=== PATIENT | female | born 1970 | race Caucasian/White ===

== ENCOUNTER 2017-01-08 19:45 | Emergency (ER) | payer OTHER ==
[~2017-01-08] VITALS: Ht 157.5 cm; Wt 113.6 kg
[2017-01-08 21:12] VITALS: BP 140/88
--- NOTE | 2017-01-08 21:19 | PHYS DOC ---
General Chief Complaint: EYE PROBLEMS Stated Complaint: LEFT EYE PROBLEM Time Seen by MD: 21:16 Source: patient Exam Limitations: no limitations Problems: History of Present Illness Initial Comments Patient is a 46-year-old female who comes to the ED complaining of left eye lid swelling. Patient states that recently both she and her spouse have been treated for staph conjunctivitis. She states that she finished doxycycline and some "drops" last week she says her required 2 rounds of antibiotics for resolution. She says several days after she finished doxycycline she had recurrence of the left eye itching and irritation and for the past 24 hours has had left upper lid swelling and mild tenderness. She typically wears contacts but has known not to wear them throughout this course of ophthalmologic antibiotic treatment. She denies any vision changes or discharge no eye pain but does have some discomfort from her upper eyelid swelling. She denies headache fever chills sweats or myalgias she denies neck pain or stiffness rash or focal weakness. Timing/Duration: gradual, last week Severity: moderate Location: eye (L) Prearrival Treatment: over the counter meds, prescription meds Modifying Factors: improves with other Associated Symptoms: other Allergies: Coded Allergies: Sulfa (Sulfonamide Antibiotics) (Verified Allergy, Unknown, 01/08/17) Past Medical History Medical History: no pertinent history Surgical History: noncontributory Social History Smoker: non-smoker Alcohol: rarely Drugs: none Constitutional: denies chills, denies diaphoresis, denies fever, denies malaise Eyes: see HPI Ears: denies dizziness, denies pain, denies tinnitus Nose: denies clots, denies congestion, denies epistaxis Throat: denies pain, denies swelling, denies discharge, denies neck stiffness Respiratory: denies cough, denies shortness of breath Cardiovascular: denies chest pain, denies palpitations Gastrointestinal: denies nausea, denies vomiting Musculoskeletal: denies muscle stiffness, denies neck pain Neurological: denies headache, denies numbness, denies paresthesia Physical Exam General Appearance: WD/WN, no apparent distress Eyes: right eye normal inspection, left eye other (mild left upper eyelid erythema swelling and tenderness), bilateral eye PERRL, bilateral eye EOMI Nose: normal inspection (left) Mouth/Throat: normal mouth inspection, pharynx normal Neck: non-tender, supple Cardiovascular/Respiratory: normal peripheral pulses, normal breath sounds 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 Departure Time of Disposition: 21:17 Disposition: 01 HOME, SELF-CARE Diagnosis: left blepharitis, periorbital cellulitis, h/o MRSA Condition: GOOD Patient Instructions: Blepharitis, [id number], MRSA Infection, Infant, Easy- to-Read, Periorbital Cellulitis Additional Instructions: No contact lenses until cleared by your doctor. Rx: doxycycline, polytrim Follow up with your doctor this week for recheck. Return to ED with new or changing symptoms. EVETTE JUAREZ DO Jan 08, 2017 21:19
[2017-01-08] MEDS ORDERED: DOXYCYCLINE HYCLATE 100 MG TABLET PO ONE (21:45)
[2017-01-08] MEDS ORDERED: ACETAMINOPHEN/CODEINE 300/30MG 4TABLET STARTPACK. PO ONE (22:15)
== END 2017-01-08 22:11 | disposition home or self-care (01) ==
LOC: ER 19:45
DX: H01.004 Unspecified blepharitis left upper eyelid (principal); L03.213 Periorbital cellulitis; Z86.14 Personal history of Methicillin resistant Staphylococcus aureus infection; Z88.2 Allergy status to sulfonamides
CPT/HCPCS: 99283

== ENCOUNTER 2017-09-08 08:11 | Emergency (ER) | payer OTHER ==
[~2017-09-08] VITALS: Ht 157.5 cm; Wt 104.3 kg
[2017-09-08 08:11] VITALS: BP 145/75
--- NOTE | 2017-09-08 08:19 | PHYS DOC ---
Past History Past Medical History: No Pertinent History Past Surgical History: , Other Alcohol Use: Occasionally Drug Use: None Adult General Chief Complaint Chief Complaint: facial swelling HPI HPI Patient is a 47 year old female who presents with with sore on her nose that has been getting worse and they started as well. She states his abdomen before and she's had a takedown seat and the second time clindamycin. She states it starts is a little zit/sore and keeps progressing. She states this morning she woke up and she noticed some blood nodes in her neck swollen. She denies any fevers chills nausea vomiting. She denies any hoarseness, she denies any pain with swallowing. She states her voice sounds the same. She states that she try to get into her primary care office without an appointment with next week. She states she feels outpatient antibiotics would likely resolve her situation. Review of Systems Review of Systems Constitutional: Denies fever or chills [] Eyes: Denies change in visual acuity, redness, or eye pain HENT: Denies nasal congestion or sore throat, pain around left Gomez Respiratory: Denies cough or shortness of breath [] Cardiovascular: No additional information not addressed in HPI [] GI: Denies abdominal pain, nausea, vomiting, bloody stools or diarrhea [] : Denies dysuria or hematuria [] Musculoskeletal: Denies back pain or joint pain [] Integument: Denies rash or skin lesions [] Neurologic: Denies headache, focal weakness or sensory changes [] Endocrine: Denies polyuria or polydipsia [] All other systems were reviewed and found to be within normal limits, except as documented in this note. Allergies Allergies Allergies Coded Allergies Type Severity Reaction Last Updated Verified Sulfa (Sulfonamide Antibiotics) Allergy Unknown 01/08/17 Yes Physical Exam Physical Exam Constitutional: Well developed, well nourished, no acute distress, non-toxic appearance. [] HENT: Normocephalic, atraumatic, bilateral external ears normal, oropharynx moist, no oral exudates, nose normal. Small lesion around the base of left there , mild swelling around left eye left near left cheek, left sided cervical lymphadenopathy appreciated, posterior pharynx clear, no stridor noted Eyes: PERRLA, EOMI, conjunctiva normal, no discharge. [] Neck: Normal range of motion, no tenderness, supple, no stridor. [] Cardiovascular:Heart rate regular rhythm, no murmur [] Lungs & Thorax: Bilateral breath sounds clear to auscultation [] Abdomen: Bowel sounds normal, soft, no tenderness, no masses, no pulsatile masses. [] Skin: Warm, dry, no erythema, no rash. [] Back: No tenderness, no CVA tenderness. [] Extremities: No tenderness, no cyanosis, no clubbing, ROM intact, no edema. [] Neurologic: Alert and oriented X 3, normal motor function, normal sensory function, no focal deficits noted. [] Psychologic: Affect normal, judgement normal, mood normal. [] EKG EKG [] Radiology/Procedures Radiology/Procedures [] Impressions: Facial cellulitis Course & Med Decision Making Course & Med Decision Making Pertinent Labs and Imaging studies reviewed. (See chart for details) Local swelling of the left side of her face but no other acute abnormalities, as noted in history of present illness she doesn't have any stridor, Edy angina, changes in her voice or other concerning symptoms. She is afebrile. Will use clindamycin 300 mg every 6 hours for the next 10 days. She is to follow -up with primary care physician next week. Return precautions given. She is agreeable to the Plan and being discharged in stable condition this time. She is unsure when her last tetanus shot was therefore ordered a tetanus shot for her. Vitals show temperature 98.6F heart rate 95 blood pressure 145/73 set 97% on room air. Dragon Disclaimer Dragon Disclaimer This electronic medical record was generated, in whole or in part, using a voice recognition dictation system. Departure Departure: Impression: Primary Impression: Facial cellulitis Disposition: 01 HOME, SELF-CARE Condition: STABLE Referrals: SHAZIA SALEH DO (PCP) Patient Instructions: Cellulitis Additional Instructions: You were seen today for swelling of your face is likely an infection that will need to be treated with antibiotics for the next 10 days. You will need to take clindamycin 300 mg every 6 hours for the next 10 days. Please follow-up with your primary care physician next few days. Return ER if you have troubles breathing, swallowing, change in her voice, high fevers, your facial swelling has gotten worse, you have any other concerns. Scripts Clindamycin Hcl (CLINDAMYCIN HCL) 300 Mg Capsule 1 CAP PO Q6HRS for 10 Days, #40 CAP Prov: MARKELL BEAUCHAMP MD 09/08/17 MARKELL BEAUCHAMP MD Sep 08, 2017 08:19
[2017-09-08] MEDS ORDERED: CLIN300C8 PO (08:53)
[2017-09-08] MEDS ORDERED: DIPHTH,PERTUSS(ACELL),TET TOX 0.5 ML DISP.SYRIN. VAX IM ONE (09:00)
== END 2017-09-08 09:25 | disposition home or self-care (01) ==
LOC: ER 08:11
DX: L03.211 Cellulitis of face (principal); Z88.2 Allergy status to sulfonamides
CPT/HCPCS: 90471; 90715; 99283-25

== ENCOUNTER 2017-11-04 11:21 | Emergency (ER) | payer OTHER ==
[~2017-11-04] VITALS: Ht 157.5 cm; Wt 113.4 kg
[~2017-11-04 11:21] MED LIST: CLIN300C8 PO
[2017-11-04 11:25] VITALS: BP 135/85
[2017-11-04] MEDS ORDERED: ERYT1OIN6 OP (12:09)
--- NOTE | 2017-11-04 12:23 | PHYS DOC ---
Past History Past Medical History: Diabetes, High Cholesterol, Hypertension Past Surgical History: , Knee Replacement Alcohol Use: Occasionally Drug Use: None Adult General Chief Complaint Chief Complaint: EYE PROBLEMS HPI HPI 47-year-old female presents with swollen left eye. The patient had a stye 5 days ago. She gets these somewhat regularly. She uses warm compresses as usual and after 2 days and began to drain. The medial portion of the upper eyelid on the left eye did not decrease in swelling. Over the course of the day yesterday , in fact increased. She now has pain in this area and it feels like her "eyeball is aching". She has not had eye matting in the morning. Today, the swelling is similar to yesterday and the pain is similar. The sclera of her eye is now erythematous is concern for infection. She does not see an shuttle inspector could not get in to her PCP. She denies fever or chills. She has no other complaints. Review of Systems Review of Systems Constitutional: Denies fever or chills [] Eyes: Eye pain, clear discharge, upper eyelid swelling in left eyelid[] HENT: Denies nasal congestion or sore throat [] Respiratory: Denies cough or shortness of breath [] Cardiovascular: No additional information not addressed in HPI [] GI: Denies abdominal pain, nausea, vomiting, bloody stools or diarrhea [] : Denies dysuria or hematuria [] Musculoskeletal: Denies back pain or joint pain [] Integument: Denies rash or skin lesions [] Neurologic: Denies headache, focal weakness or sensory changes [] Endocrine: Denies polyuria or polydipsia [] All other systems were reviewed and found to be within normal limits, except as documented in this note. Allergies Allergies Allergies Coded Allergies Type Severity Reaction Last Updated Verified Sulfa (Sulfonamide Antibiotics) Allergy Unknown 01/08/17 Yes gentamicin Allergy Unknown 11/04/17 Yes Physical Exam Physical Exam Constitutional: Well developed, well nourished, no acute distress, non-toxic appearance. [] HENT: Normocephalic, atraumatic, bilateral external ears normal, oropharynx moist, no oral exudates, nose normal. [] Eyes: PERRLA, EOMI, conjunctiva normal injected on left, clear discharge with some purulent discharge in corner of the eye. Moderate swelling of left upper eyelid, worse on medial aspect. Firm to the touch, erythematous. [] Neck: Normal range of motion, no tenderness, supple, no stridor. [] Cardiovascular:Heart rate regular rhythm, no murmur [] Lungs & Thorax: Bilateral breath sounds clear to auscultation [] Abdomen: Bowel sounds normal, soft, no tenderness, no masses, no pulsatile masses. [] Skin: Warm, dry, no erythema, no rash. [] Back: No tenderness, no CVA tenderness. [] Extremities: No tenderness, no cyanosis, no clubbing, ROM intact, no edema. [] Neurologic: Alert and oriented X 3, normal motor function, normal sensory function, no focal deficits noted. [] Psychologic: Affect normal, judgement normal, mood normal. [] Current Patient Data Vital Signs Vital Signs Date Time Temp Pulse Resp B/P (MAP) Pulse Ox O2 Delivery O2 Flow Rate FiO2 11/04/17 11:25 98.9 100 18 97 Room Air EKG EKG [] Radiology/Procedures Radiology/Procedures [] Course & Med Decision Making Course & Med Decision Making Pertinent Labs and Imaging studies reviewed. (See chart for details) The patient's eye is concerning for dacryocystitis. I will place her on erythromycin ointment empirically and recommend that she continue her warm compresses. Her symptoms do not improve by Monday, she will follow up with an shuttle inspector. She will return to the ED if her conditions worsen or she develops systemic symptoms. [] Dragon Disclaimer Dragon Disclaimer This electronic medical record was generated, in whole or in part, using a voice recognition dictation system. Departure Departure: Impression: Primary Impression: Dacryoadenitis of left lacrimal gland Disposition: HOME, SELF-CARE Condition: STABLE Patient Instructions: Dacryocystitis Scripts Erythromycin Base (Erythromycin) 1 Gm Oint...g. 1 GM OP QID for 7 Days, #1 MISC Prov: OKSANA JANG DO 11/04/17 OKSANA JANG DO November 04, 2017 12:23
== END 2017-11-04 12:18 | disposition home or self-care (01) ==
LOC: ER 11:21
DX: H04.002 Unspecified dacryoadenitis, left lacrimal gland (principal); E11.9 Type 2 diabetes mellitus without complications; E78.00 Pure hypercholesterolemia, unspecified; I10 Essential (primary) hypertension; Z88.2 Allergy status to sulfonamides; Z88.1 Allergy status to other antibiotic agents
CPT/HCPCS: 99283

== ENCOUNTER 2021-03-05 18:15 | Emergency (ER) | payer OTHER ==
[~2021-03-05] VITALS: Ht 157.5 cm; Wt 100.1 kg
[~2021-03-05 18:15] MED LIST changes: -CLIN300C8 PO; +CLIN300C9 PO; +ERYT1OIN6 OP
--- NOTE | 2021-03-05 18:26 | PHYS DOC ---
Past History Past Medical History: Diabetes, High Cholesterol, Hypertension Past Surgical History: , Knee Replacement Alcohol Use: Occasionally Drug Use: None General Adult HPI: HPI: " I ve had this pain right upper here in my stomach and abdomen... It has been off and on for the past 2 weeks. Sometimes worse than others. Today it seemed much worse. Patient denies any trauma. No specific ill contacts no history of bad food. Has had COVID vaccination. There is a family history of gallbladder disease father is just completed gallbladder surgery. Patient has had previous C-sections x3. Patient had a normal stool today. Had normal urine. Did eat at 11 today. Patient is diabetic. Patient is a 50 year old female who presents with above hx and complaints abdomen pain. Pt. follows with Dr. Gurwinder Lozoya. Has an past follow-up with Dr. Zuniga. Review of Systems: Review of Systems: Constitutional: Denies fever or chills Eyes: Denies change in visual acuity HENT: Denies nasal congestion or sore throat Respiratory: Denies cough or shortness of breath Cardiovascular: Denies chest pain or edema GI: Complains of abdominal pain, nausea,. Vomiting, bloody stools or diarrhea : Denies dysuria Musculoskeletal: Denies back pain or joint pain Integument: Denies rash Neurologic: Denies headache, focal weakness or sensory changes Endocrine: Denies polyuria or polydipsia Lymphatic: Denies swollen glands Psychiatric: Denies depression or anxiety Family History: Family History: Father just had gallbladder surgery Current Medications: Current Meds: See nursing for home meds Allergies: Allergies: Allergies Coded Allergies Type Severity Reaction Last Updated Verified Sulfa (Sulfonamide Antibiotics) Allergy Unknown 01/08/17 Yes gentamicin Allergy Unknown 11/04/17 Yes Physical Exam: PE: Constitutional: Well developed, well nourished, moderate distress, non-toxic appearance. [] HENT: Normocephalic, atraumatic, bilateral external ears normal, oropharynx mois t, no oral exudates, nose normal. [] Eyes: PERRLA, EOMI, conjunctiva normal, no discharge. [] Neck: Normal range of motion, no tenderness, supple, no stridor. [] Cardiovascular: Tachycardia heart rate regular rhythm, no murmur [] Lungs & Thorax: Bilateral breath sounds clear to auscultation [] Abdomen: Bowel sounds normal, soft, right upper quadrant tenderness, no masses, no pulsatile masses. [] Rebound to right upper quadrant. Denies any tarry stools. Does have old abdomen scars. Skin: Warm, dry, no erythema, no rash. [] Back: No tenderness, no CVA tenderness. [] Extremities: No tenderness, no cyanosis, no clubbing, ROM intact, no edema. [No true psoas sign. Neurologic: Alert and oriented X 3, normal motor function, normal sensory function, no focal deficits noted. [] Psychologic: Affect anxious, judgement normal, mood normal. [] EKG: EKG: My interpretation EKG shows a sinus rhythm with a ventricular rate of 105. No findings acute STEMI of contralateral changes. Time of EKG is 1935 hrs. [] Radiology/Procedures: Radiology/Procedures: [][address] [id number] IMAGING REPORT Signed PATIENT: JOHN MARTÍNEZOUNT: [id number] : 1970 LOCATION: ER AGE: 50 SEX: F EXAM STATUS: REG ER ORD. PHYSICIAN: JOSE F HINES MD REASON: OMNI 240,30ML PO.OMNI 300,75ML IV.RT upper abd pain PROCEDURE: CT ABD PELV W/ORAL&IV CONTRAST Exam: CT of abdomen and pelvis with contrast INDICATION: Right upper abdominal pain TECHNIQUE: Sequential axial images through the abdomen and pelvis obtained following the administration of 75 mL of Isovue-370 IV contrast. Sagittal and c oronal reformatted images were reconstructed from the axial data and reviewed. Exposure: One or more of the following in the visualized dose reduction techniques were utilized for this examination: 1. Automated exposure control 2. Adjustment of the MA and/or KV according to patient size 3. Use of iterative of reconstructive technique Comparisons: None FINDINGS: Heart size is normal. No pericardial effusion. Visualized lung bases are clear. No pleural effusion. Liver, spleen, pancreas, gallbladder and adrenals are unremarkable. No perinephric inflammation or hydronephrosis. No renal or ureteral calculi are identified. Bladder is decompressed not well evaluated. Uterus not enlarged. No abnormal adnexal mass. Partial stool is noted in the colon. No free intra-abdominal air or fluid. No obstruction. Appendix is not identified. No free intra-abdominal air or fluid. No obstruction. Abdominal aorta has normal course and caliber. Abdominal vasculature is patent. No enlarged intra-abdominal lymph nodes are identified. No suspicious osseous lesions or acute fractures. IMPRESSION: No acute process identified within the abdomen or pelvis. Electronically signed by: Ledy Shelley MD (03/05/2021 8:57 PM) [facility] DICTATED AND SIGNED BY: LEDY SHELLEY MD DATE: 03/05/212053 CC: LM LOZOYA MD; JOSE F HINES MD ~MTH0 [address] [place] [address] IMAGING REPORT Signed PATIENT: JOHN MARTÍNEZOUNT: [id number] : 1970 LOCATION: ER AGE: 50 SEX: F EXAM STATUS: REG ER ORD. PHYSICIAN: JOSE F HINES MD REASON: pain PROCEDURE: ACUTE ABDOMEN SERIES Exam: Acute abdominal series INDICATION: Pain TECHNIQUE: Frontal view of chest with upright and supine views the abdomen Comparisons: None FINDINGS: The cardiomediastinal silhouette and pulmonary vessels are within normal limits. The lung and pleural spaces are clear. Large amount stool noted in the colon. No dilated loops of bowel identified in the abdomen. No suspicious masses or calcifications. Visualized osseous structures are unremarkable. IMPRESSION: 1. No acute cardiopulmonary process. 2. Moderate amount stool noted in the colon correlate for constipation. Nonobstructive bowel gas pattern. Electronically signed by: Ledy Shelley MD (03/05/2021 7:15 PM) [facility] DI[facility]ATED AND SIGNED BY: LEDY SHELLEY MD DATE: 03/05/211914 CC: LM LOZOYA MD; JOSE F HINES MD ~MTH0 0 Heart Score: C/O Chest Pain: No HEART Score for Chest Pain: HEART Score for Chest Pain Response (Comments) Value History Slighlty/Non-Suspicious 0 ECG Normal 0 Age >45 - < 65 1 Risk Factors 1 or 2 Risk Factors 1 Troponin < Normal Limit 0 Total 2 Risk Factors: Risk Factors: DM, Current or recent (<one month) smoker, HTN, HLP, family history of CAD, obesity. Risk Scores: Score 0 - 3: 2.5% MACE over next 6 weeks - Discharge Home Score 4 - 6: 20.3% MACE over next 6 weeks - Admit for Clinical Observation Score 7 - 10: 72.7% MACE over next 6 weeks - Early Invasive Strategies Course & Med Decision Making: Course & Med Decision Making Pertinent Labs and Imaging studies reviewed. (See chart for details) Stay on a clear fluid diet only. Tylenol and ibuprofen for discomfort. Pepcid 20 mg twice a day. Follow-up with primary care. Obtain outpatient ultrasound studies or PIPIDA scan to evaluate for gallbladder function. Consider getting an EGD. Follow-up primary care. Return if any concerns. Impression: 1. Abdomen pain 2. Suspect biliary colic 3. Gastritis/GERD 4. Diabetes glucose 317 5. Mild leukocytosis 11.7 [] Dragon Disclaimer: Dragon Disclaimer: This electronic medical record was generated, in whole or in part, using a voice recognition dictation system. Departure Departure: Referrals: LM LOZOYA MD (PCP) Scripts Ondansetron Hcl (ZOFRAN) 4 Mg Tablet 8 MG PO qidp for nv, #30 TAB Prov: JOSE F HINES MD 03/05/21 Famotidine (PEPCID) 20 Mg Tablet 20 MG PO BID for gastritis for 30 Days, #60 TAB Prov: JOSE F HINES MD 03/05/21 Dragon Disclaimer This chart was dictated in whole or in part using Voice Recognition software in a busy, high-work load, and often noisy Emergency Department environment. It may contain unintended and wholly unrecognized errors or omissions. JOSE F HINES MD Mar 05, 2021 18:26
[2021-03-05] MEDS ORDERED: IV RINGERS SOLUTION,LACTATED 1,000 ML IV SCH (18:45)
[2021-03-05] MEDS ORDERED: IOHEXOL 300 MG/ML 75 ML VIAL. IV ONE (19:00)
[2021-03-05] MEDS ORDERED: CONTRAST GIVEN. MC PRN (19:00)
[2021-03-05] MEDS ORDERED: IOHEXOL 240 MG/ML 50ML VIAL. PO ONE (19:00)
[2021-03-05 19:13] LABS: BASO # 0.1 x10^3/uL (0.0-0.2); BASO % 1 % (0-3); EOS # 0.3 x10^3/uL (0.0-0.7); EOS % 3 % (0-3); HEMATOCRIT 43.9 % (36.0-47.0); HEMOGLOBIN 15.1 g/dL (12.0-15.5); LYMPH # 3.6 x10^3/uL (1.0-4.8); LYMPH % 31 % (24-48); MEAN CORPUSCULAR HEMOGLOBIN 30 pg (25-35); MEAN CORPUSCULAR HGB CONC 35 g/dL (31-37); MEAN CORPUSCULAR VOLUME 88 fL (79-100); MONO # 0.9 x10^3/uL (0.0-1.1); MONO % 7 % (0-9); NEUT # 6.9 x10^3uL (1.8-7.7); NEUT % 59 % (31-73); PLATELET COUNT 288 x10^3/uL (140-400); RED BLOOD COUNT 4.97 x10^6/uL (3.50-5.40); RED CELL DISTRIBUTION WIDTH 12.5 % (11.5-14.5); WHITE BLOOD COUNT 11.7 x10^3/uL (4.0-11.0)
[2021-03-05] MEDS ORDERED: KETOROLAC 30 MG/ML VIAL. IVP ONE (19:15)
[2021-03-05] MEDS ORDERED: MORPHINE SULFATE 10 MG/ML SYRINGE. SQ ONE (19:15)
[2021-03-05] MEDS ORDERED: FAMOTIDINE 20 MG/2 ML VIAL IVP ONE (19:15)
[2021-03-05] MEDS ORDERED: ONDANSETRON PF 4 MG/2 ML VIAL. IVP ONE (19:15)
--- NOTE | 2021-03-05 19:18 | RAD ---
Exam: Acute abdominal series INDICATION: Pain TECHNIQUE: Frontal view of chest with upright and supine views the abdomen Comparisons: None FINDINGS: The cardiomediastinal silhouette and pulmonary vessels are within normal limits. The lung and pleural spaces are clear. Large amount stool noted in the colon. No dilated loops of bowel identified in the abdomen. No suspicious masses or calcifications. Visualized osseous structures are unremarkable. IMPRESSION: 1. No acute cardiopulmonary process. 2. Moderate amount stool noted in the colon correlate for constipation. Nonobstructive bowel gas pat tern. Electronically signed by: Ledy Mcconnell MD (03/05/2021 7:15 PM) [facility]
[2021-03-05 20:28] LABS: CALCIUM 8.6 mg/dL (8.5-10.1); CREATININE 0.6 mg/dL (0.6-1.0); GFR 106.3; POTASSIUM 3.8 mmol/L (3.5-5.1)
[2021-03-05 20:33] LABS: ALBUMIN 3.3 g/dL (3.4-5.0); DIRECT BILIRUBIN 0.1 mg/dL (0.0-0.2); TOTAL BILIRUBIN 0.4 mg/dL (0.2-1.0); TOTAL PROTEIN 6.4 g/dL (6.4-8.2)
[2021-03-05 20:45] LABS: BARBITURATES NEG (NEG); BENZODIAZEPINES NEG (NEG); CANNABINOIDS NEG (NEG); COCAINE NEG (NEG); METHADONE NEG (NEG); OPIATES NEG (NEG); PHENCYCLIDINE NEG (NEG)
[2021-03-05 20:46] LABS: AMPHETAMINE/METHAMPHETAMINE NEG (NEG)
--- NOTE | 2021-03-05 21:00 | RAD ---
Exam: CT of abdomen and pelvis with contrast INDICATION: Right upper abdominal pain TECHNIQUE: Sequential axial images through the abdomen and pelvis obtained following the administrati on of 75 mL of Isovue-370 IV contrast. Sagittal and coronal reformatted images were reconstructed fro m the axial data and reviewed. Exposure: One or more of the following in the visualized dose reduction techniques were utilized for this examination: 1. Automated exposure control 2. Adjustment of the MA and/or KV according to patient size 3. Use of iterative of reconstructive technique Comparisons: None FINDINGS: Heart size is normal. No pericardial effusion. Visualized lung bases are clear. No pleural effusion. Liver, spleen, pancreas, gallbladder and adrenals are unremarkable. No perinephric inflammation or hydronephrosis. No renal or ureteral calculi are identified. Bladder is decompressed not well evaluated. Uterus not enlarged. No abnormal adnexal mass. Partial stool is noted in the colon. No free intra-abdominal air or fluid. No obstruction. Appendix i s not identified. No free intra-abdominal air or fluid. No obstruction. Abdominal aorta has normal course and caliber. Abdominal vasculature is patent. No enlarged intra-abdominal lymph nodes are identified. No suspicious osseous lesions or acute fractures. IMPRESSION: No acute process identified within the abdomen or pelvis. Electronically signed by: Ledy Mcconnell MD (03/05/2021 8:57 PM) [facility]
[2021-03-05 21:15] LABS: BACTERIA,URINE FEW /HPF (0-FEW); BILIRUBIN,URINE NEG (NEG); CLARITY,URINE CLEAR; COLOR,URINE YELLOW; GLUCOSE,URINE >=1000 mg/dL (NEG); NITRITE,URINE NEG (NEG); RBC,URINE 0 /HPF (0-2); SQUAMOUS EPITHELIAL CELL,UR MANY /LPF; UROBILINOGEN,URINE 0.2 mg/dL (0.2 mg/dL)
[2021-03-05] MEDS ORDERED: FAMO-63 PO (21:30)
[2021-03-05] MEDS ORDERED: diphenhydrAMINE 50 MG/ML VIAL ONE (21:42)
[2021-03-05] MEDS ORDERED: ONDA4TAB7 PO (21:43)
[2021-03-05] MEDS ORDERED: SUCRALFATE 1 GM TABLET. PO ONE (22:00)
[2021-03-05] MEDS ORDERED: MAGNESIUM HYDROXIDE 2,400 MG/30 ML ORAL.SUSP. PO ONE (22:00)
[2021-03-05] MEDS ORDERED: PROCHLORPERAZINE 10 MG/2 ML VIAL. IV ONE (22:15)
[2021-03-05] MEDS ORDERED: diphenhydrAMINE 50 MG/ML VIAL IVP ONE (22:15)
[2021-03-05 23:10] VITALS: BP 146/90
--- NOTE | 2021-03-06 00:39 | EKG ---
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
== END 2021-03-05 23:17 | disposition home or self-care (01) ==
LOC: ER 18:15
DX: R10.11 Right upper quadrant pain (principal); E11.9 Type 2 diabetes mellitus without complications; D72.829 Elevated white blood cell count, unspecified; R11.2 Nausea with vomiting, unspecified; E78.00 Pure hypercholesterolemia, unspecified; I10 Essential (primary) hypertension; Z98.890 Other specified postprocedural states; Z88.2 Allergy status to sulfonamides; Z88.1 Allergy status to other antibiotic agents
CPT/HCPCS: 36415; 74022; 74177; 80048; 80061; 80076; 80307; 81001; 81025; 82150; 82550; 83690; 84484; 85025; 87086; 93005; 96361; 96372; 96374; 96375; 99285; J0780; J1200; J1885; J2270; J2405; J3490; J7120; Q9966; Q9967

== ENCOUNTER → 2021-05-07 | Outpatient (CLI) | payer OTHER ==
[~2021-05-07] MED LIST changes: +CLIN-95 PO; -CLIN300C9 PO; +CONTRAST GIVEN. MC PRN; +FAMO-63 PO; +IOHEXOL 240 MG/ML 50ML VIAL. ONE; +IOHEXOL 240 MG/ML 50ML VIAL. PO ONE; +IOHEXOL 300 MG/ML 75 ML VIAL. IV ONE; +ONDA4TAB7 PO
[2021-05-07 08:50] LABS: CREATININE 0.7 mg/dL (0.6-1.0); GFR 88.6
--- NOTE | 2021-05-07 11:02 | RAD ---
EXAMINATION: CT ABDOMEN W CLINICAL HISTORY: Right upper quadrant pain TECHNIQUE: CT of the abdomen was performed using standard technique, scanning from just above the dom e of the diaphragm to the iliac crests following administration of intravenous contrast. CT Dose Reduction Employed: One or more of the following individualized dose reduction techniques wer e utilized for this examination: 1. Automated exposure control 2. Adjustment of the mA and/or kV ac cording to patient size 3. Use of iterative reconstruction technique. COMPARISON: CT abdomen/pelvis 03/05/2021 FINDINGS: Visualized heart and lungs unremarkable. Liver, gallbladder, pancreas, spleen, adrenal glands, and kidneys unremarkable. No bowel dilation or definite wall thickening. Appendix within normal limits. No abdominal aortic or iliac artery aneurysm. Partially visualized degenerative changes of the thoracic spine. IMPRESSION: No evidence of acute abdominopelvic abnormality or significant interval change. Electronically signed by: Kyler Dee DO (05/07/2021 11:00 AM) [facility]
== END ==
LOC: CT 07:55
PROVIDERS: ATTEND Nurse Practitioner Family
DX: R10.9 Unspecified abdominal pain (principal); M47.814 Spondylosis without myelopathy or radiculopathy, thoracic region
CPT/HCPCS: 36415; 74160; 82565; 84520; Q9966; Q9967